=== PATIENT | female | born 1980 | race American Indian/Alaskan Native ===

== ENCOUNTER 2016-06-30 13:02 | Inpatient (IN) | payer BC ==
--- NOTE | 2016-06-30 13:20 | Emergency Department Report ---
Chief Complaint: Adult Asthma Stated Complaint: MIKAYLA - HPI History of Present Illness: Patient presents with progressive asthma attack on going x Sunday (5-6 days). States on daily prednisone 30 mg, and has had 3 breathing tx upstairs at her dept here in [facility] w/o relief. NOTE: Patient is [facility] employee. - Exam Vital Signs: Vital Signs 06/30/16 13:05 Temperature 98.1 F Pulse Rate 107 H Blood Pressure 155/99 O2 Sat by Pulse 100 Oximetry Physical Exam: Lungs: Labored respiration. MSE screening note: Focused history and physical exam performed. Due to findings the following was ordered: ED Disposition for MSE Condition: Stable
[2016-06-30] MEDS ORDERED: DUONEB 0.5 MG-3 MG/3 ML SOLN IH ONE ×2 (13:24→13:25)
[2016-06-30] MEDS ORDERED: MAGNESIUM SULFATE 2GM/50ML 50 ML IV ONE (13:26)
--- NOTE | 2016-06-30 14:26 | XRay Report ---
AP CHEST: HISTORY: Difficulty in breathing AP view of the chest demonstrates a normal mediastinal and cardiac contour with clear lungs and normal bony and soft tissue structures. IMPRESSION: Unremarkable AP chest.
[2016-06-30 14:49] LABS: Basophils % (Auto) 0.3 % (0.0-1.8); Hematocrit 36.7 % (30.3-42.9); Hemoglobin 12.1 gm/dl (10.1-14.3); Mean Corpuscular HGB Conc 33 % (30-34); Mean Corpuscular Hemoglobin 27 pg (28-32); Mean Corpuscular Volume 82 fl (79-97); Platelet Count 424 K/mm3 (140-440); Red Blood Count 4.51 M/mm3 (3.65-5.03); Red Cell Distribution Width 15.4 % (13.2-15.2); White Blood Count 7.1 K/mm3 (4.5-11.0)
--- NOTE | 2016-06-30 14:57 | Emergency Department Report ---
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 She has a history of asthma which I suspect is moderately severe. She is seen her primary care physician or fixed income director's who has placed her on steroids. He is also started Pulmicort. She is ordinarily on home nebs which she has taken 5 mg of albuterol today as well as her Pulmicort neb. Despite this she has continued difficulty in breathing. She was placed she states on an antibiotic taken twice a day which starts with a "Z" this week. She is on 30 mg of prednisone a day currently. She has no history of previous intubation. She does not report a history of diabetes either. She does not complain of chest pain, fever or chills. -: Gradual, week(s) Consistency: constant Improves with: none Worsens with: none Associated Symptoms: denies other symptoms - Related Data Home Medications Medication Instructions Recorded Confirmed Last Taken Montelukast [Singulair] 10 mg PO QPM 08/14/15 08/14/15 08/13/15 Previous Rx's Medication Instructions Recorded Last Taken Type Cimetidine [Tagamet Hb] 2 tab PO BID #12 tablet 08/14/15 Unknown Rx Triamcinolone 0.1% [Kenalog 0.1% 1 applic TP TID #120 gm 08/14/15 Unknown Rx CREAM] hydrOXYzine PAMOATE [Vistaril] 1 tab PO Q6HR PRN #20 capsule 08/14/15 Unknown Rx predniSONE [Deltasone] 3 tab PO QDAY #15 tab 08/14/15 Unknown Rx Allergies Allergy/AdvReac Type Severity Reaction Status Date / Time codeine Allergy Hives Verified 06/30/16 13:11 montelukast sodium Allergy Hives Verified 06/30/16 13:11 [From Singulair] ED Review of Systems ROS: Stated complaint: MIKAYLA Other details as noted in HPI Constitutional: denies: chills, fever Eyes: denies: eye pain, eye discharge, vision change ENT: denies: ear pain, throat pain Respiratory: cough (occasional nonproductive), shortness of breath, wheezing Cardiovascular: denies: chest pain, palpitations Endocrine: no symptoms reported Gastrointestinal: denies: abdominal pain, nausea, diarrhea Genitourinary: denies: urgency, dysuria, discharge Musculoskeletal: denies: back pain, joint swelling, arthralgia Skin: denies: rash, lesions Neurological: denies: headache, weakness, paresthesias Psychiatric: denies: anxiety, depression Hematological/Lymphatic: denies: easy bleeding, easy bruising ED Past Medical Hx - Past Medical History Hx Hypertension: Yes Hx Diabetes: Yes Hx Asthma: Yes - Surgical History Additional Surgical History: bladder surgery, Right knee surgery - Social History Smoking Status: Never Smoker Substance Use Type: Alcohol - Medications Home Medications: Home Medications Medication Instructions Recorded Confirmed Last Taken Type Cimetidine [Tagamet Hb] 2 tab PO BID #12 tablet 08/14/15 Unknown Rx Montelukast [Singulair] 10 mg PO QPM 08/14/15 08/14/15 08/13/15 History Triamcinolone 0.1% [Kenalog 0.1% 1 applic TP TID #120 gm 08/14/15 Unknown Rx CREAM] hydrOXYzine PAMOATE [Vistaril] 1 tab PO Q6HR PRN #20 capsule 08/14/15 Unknown Rx predniSONE [Deltasone] 3 tab PO QDAY #15 tab 08/14/15 Unknown Rx ED Physical Exam - General Limitations: No Limitations General appearance: alert, in no apparent distress - Head Head exam: Present: atraumatic, normocephalic - Eye Eye exam: Present: normal appearance, PERRL, EOMI. Absent: scleral icterus - ENT ENT exam: Present: normal exam, mucous membranes moist - Neck Neck exam: Present: normal inspection - Respiratory Respiratory exam: Present: other (patient noted to be a bit tachypnea with a very slight end expiratory wheeze.). Absent: respiratory distress - Cardiovascular Cardiovascular Exam: Present: regular rate, normal rhythm. Absent: systolic murmur, diastolic murmur, rubs, gallop - GI/Abdominal GI/Abdominal exam: Present: soft, normal bowel sounds. Absent: distended, tenderness, guarding, rebound, rigid, organomegaly, mass, bruit, pulsatile mass , hernia - Extremities Exam Extremities exam: Present: normal inspection. Absent: pedal edema, joint swelling, calf tenderness - Back Exam Back exam: Present: normal inspection. Absent: CVA tenderness (R), CVA tenderness (L), muscle spasm, paraspinal tenderness, vertebral tenderness - Neurological Exam Neurological exam: Present: alert, oriented X3, CN II-XII intact. Absent: motor sensory deficit - Psychiatric Psychiatric exam: Present: normal affect, normal mood - Skin Skin exam: Present: warm, dry, intact, normal color. Absent: rash ED Course Vital Signs 06/30/16 06/30/16 06/30/16 13:05 13:28 13:59 Temperature 98.1 F Pulse Rate 107 H Pulse Rate [ 98 H 102 H Anterior Bilateral Throughout] Respiratory 24 20 Rate [Anterior Bilateral Throughout] Blood Pressure 155/99 O2 Sat by Pulse 100 Oximetry - Reevaluation(s) Reevaluation #1: The patient's respiratory rate appeared to be a bit disproportionate to the degree of her wheezing. She was found to have an increased anion gap metabolic acidosis. She has a sugar of 199. This is probably steroid induced. I have ordered some potassium as her total body potassium is undoubtably depleted with a serum potassium of 3.3. I've expanded her workup to investigate other possible causes of metabolic acidosis increased anion gap. Patient's chest x-ray was essentially negative. I have discussed the case with the hospitalist. They wanted to defer empiric antibiotics at this time. I have ordered a repeat BMP after a liter of normal saline and potassium is given area and patient will be admitted for further care and observation overnight. I suspect the Solu-Medrol that she has now gotten May the possibly worsen the process. In any case she will be admitted for further evaluation. 06/30/16 16:17 ED Medical Decision Making - Lab Data Result diagrams: 06/30/16 14:36 06/30/16 14:36 Laboratory Results - last 24 hr 06/30/16 14:36 WBC 7.1 RBC 4.51 Hgb 12.1 Hct 36.7 MCV 82 MCH 27 L MCHC 33 RDW 15.4 H Plt Count 424 Lymph % (Auto) 11.9 L Franklin % (Auto) 5.7 Eos % (Auto) 0.0 Baso % (Auto) 0.3 Lymph # 0.8 L Franklin # 0.4 Eos # 0.0 Baso # 0.0 Seg Neutrophils % 82.1 H Seg Neutrophils # 5.8 Laboratory Results - last 24 hr 06/30/16 14:36 WBC 7.1 RBC 4.51 Hgb 12.1 Hct 36.7 MCV 82 MCH 27 L MCHC 33 RDW 15.4 H Plt Count 424 Lymph % (Auto) 11.9 L Franklin % (Auto) 5.7 Eos % (Auto) 0.0 Baso % (Auto) 0.3 Lymph # 0.8 L Franklin # 0.4 Eos # 0.0 Baso # 0.0 Seg Neutrophils % 82.1 H Seg Neutrophils # 5.8 Laboratory Results - last 24 hr 06/30/16 06/30/16 14:36 14:36 WBC 7.1 RBC 4.51 Hgb 12.1 Hct 36.7 MCV 82 MCH 27 L MCHC 33 RDW 15.4 H Plt Count 424 Lymph % (Auto) 11.9 L Franklin % (Auto) 5.7 Eos % (Auto) 0.0 Baso % (Auto) 0.3 Lymph # 0.8 L Franklin # 0.4 Eos # 0.0 Baso # 0.0 Seg Neutrophils % 82.1 H Seg Neutrophils # 5.8 Sodium 137 Potassium 3.3 L Chloride 94.7 L Carbon Dioxide 18 L Anion Gap 28 BUN 9 Creatinine 0.8 Estimated GFR > 60 BUN/Creatinine Ratio 11.25 Glucose 199 H Calcium 9.5 - EKG Data -: EKG Interpreted by Me EKG shows normal: sinus rhythm, intervals, QRS complexes, ST-T waves Rate: normal - EKG Data Interpretation: nonspecific ST-T wave tucker L axis deviation 06/30/16 16:20 - Radiology Data interpreted by me: Chest x-ray shows no acute process Critical care attestation.: If time is entered above; I have spent that time in minutes in the direct care of this critically ill patient, excluding procedure time. ED Disposition Clinical Impression: Metabolic acidosis, Increased anion gap metabolic acidosis, Hyperglycemia, Hyponatremia, Exacerbation of asthma Disposition: OP ADMITTED IP TO THIS HOSP Is pt being admited?: Yes Does the pt Need Aspirin: No Condition: Stable Referrals: PRIMARY CARE, [Primary Care Provider] - 3-5 Days Time of Disposition: 16:27
[2016-06-30 15:32] LABS: BUN/Creatinine Ratio 11.25; Blood Urea Nitrogen 9 mg/dL (7-17); Calcium 9.5 mg/dL (8.4-10.2); Carbon Dioxide 18 mmol/L (22-30); Chloride 94.7 mmol/L (98-107); Glucose 199 mg/dL (65-100); Potassium 3.3 mmol/L (3.6-5.0); Sodium 137 mmol/L (137-145)
[2016-06-30 15:39] LABS: Anion Gap 28 mmol/L
[2016-06-30] MEDS ORDERED: K-DUR PO ONE (16:11)
[2016-06-30] MEDS ORDERED: NACL 0.9% 1000 ML 1,000 ML IV ONE (16:11)
--- NOTE | 2016-06-30 16:42 | Admit Criteria Form ---
Admission Criteria Documentation: ASTHMA Clinical Indications for Admission to Inpatient Care (Place 'X' for any and all applicable criteria): Admission is indicated for ANY ONE of the following (1)(2)(3)(4)(5): [ ]I. Absent or markedly diminished breath sounds (silent chest) [ ]II. Oxygen saturation < 92% [ ]III. PaCO2 = / > 42 mm Hg (5.6 kPa) [ ]IV. Peak expiratory flow rate < 40% of predicted or personal best after treatment. [ ]V. Peak expiratory flow rate < 33% of predicted or personal before after treatment [ ]. Change in mental status [ ]VII. Ventilatory support required [ ]VIII. PaO2 < 60 mm Hg (8.0 kPa) [ ]IX. Cyanosis [ ]X. Cardiac dysrhythmia (e.g., bradycardia) [ ]XI. Hemodynamic instability [ ]XII. Radiographic evidence of complication requiring inpatient treatment (e.g., pneumonia, pneumothorax) [X]XIII. Inpatient admission required rather than observation care (also use Asthma: Observation Care guideline as appropriate) because of ANY ONE of the following: [X]a) Respiratory finding that is severe or persistent (eg, dyspnea, tachypnea, accessory muscle use) [ ]b) Airflow measurements less than 60% of predicted or personal best that persist (e.g., over 24 hours) or worsen despite treatments [X]c) Supplemental oxygen or respiratory treatments for over 24 hours that are performable only in acute inpatient setting [ ]d) Other condition, treatment or monitoring requiring inpatient admission. Extended stay beyond goal length of stay may be needed for (26)(27)(28): [ ]a) Severe respiratory failure (23) (29) (30) [ ]b) Secondary causes and complications (25) [ ]c) Status asthmaticus [ ]d) Chronic obstructive asthma [ ]e) Older patients (29) [ ]f) Slow resolution [ ]g) Clinically significant exacerbation of comorbidities (eg, nicole. heart failure, atrial fibrillation) The original [facility] content created by [employer] has been revised. The portions of the content which have been revised are identified through the use of italic text or in bold, and [facility] has neither reviewed nor approved the modified material. All other unmodified content is copyright [facility] Please see references footnoted in the original [facility] edition 2016 Admission Criteria Met: Yes
[2016-06-30] MEDS ORDERED: BROVANA NEBU IH ONE (17:23)
--- NOTE | 2016-06-30 17:25 | History and Physical Report ---
History of Present Illness Date of examination: 06/30/16 Date of admission: 06/30/16 16:15 Chief complaint: shortness of breath and wheezing for 6 days History of present illness: Miss Spann is a 35-year-old -[place] female who presented to the emergency room with shortness of breath and wheezing which has been ongoing for the last 6 days. She reported that she was at work on Sunday and started to have difficulty breathing and she had to go home. She was started on steroids and antibiotics. She was also been using her nebulization treatment at home. She reported that her breathing has been so bad that she has been using her father's CPAP machine at night's. She was seen in the emergency room and given IV steroids, IV magnesium sulfate and nebulization treatments. At the time of evaluation she reported that she felt much better and her shortness of breath had improved. She had no chest pain or chest tightness. Dr. Ruvalcaba is her global lead. Past History Past Medical History: diabetes, hypertension, other (Asthma asthma-never been intubated. She reports that she's not had an asthma attack for a while and that usually she is relatively well controlled) Past Surgical History: Other (surgery on the knee) Social history: full code. denies: smoking, alcohol abuse, prescription drug abuse, IV drug use Family history: hypertension, other (asthma-brother from asthma) Medications and Allergies Allergies Allergy/AdvReac Type Severity Reaction Status Date / Time codeine Allergy Hives Verified 06/30/16 13:11 montelukast sodium Allergy Hives Verified 06/30/16 13:11 [From Singulair] Home Medications Medication Instructions Recorded Confirmed Last Taken Type Cimetidine [Tagamet Hb] 2 tab PO BID #12 tablet 08/14/15 Unknown Rx Montelukast [Singulair] 10 mg PO QPM 08/14/15 08/14/15 08/13/15 History Triamcinolone 0.1% [Kenalog 0.1% 1 applic TP TID #120 gm 08/14/15 Unknown Rx CREAM] hydrOXYzine PAMOATE [Vistaril] 1 tab PO Q6HR PRN #20 capsule 08/14/15 Unknown Rx predniSONE [Deltasone] 3 tab PO QDAY #15 tab 08/14/15 Unknown Rx Review of Systems All systems: negative Constitutional: no weight loss, no weight gain, no fever, no anorexia, no fatigue, no weakness Ears, nose, mouth and throat: no ear pain, no ear discharge, no tinnitis Breasts: normal Cardiovascular: no chest pain, no orthopnea, no palpitations, no rapid/ irregular heart beat Respiratory: cough, no cough with sputum, no excessive sputum, no hemoptysis Gastrointestinal: no abdominal pain, no nausea, no vomiting, no diarrhea Genitourinary Female: no dyspareunia, no dysmenorrhea, no pelvic pain, no flank pain, no menorrhagia Musculoskeletal: no shooting arm pain, no arm numbness/tingling, no low back pain Integumentary: no rash, no pruritis, no redness, no sores Neurological: no head injury, no transient paralysis, no paralysis, no weakness , no parathesias Psychiatric: no anxiety, no memory loss, no change in sleep habits, no sleep disturbances Endocrine: no cold intolerance, no heat intolerance, no polyphagia, no excessive thirst Hematologic/Lymphatic: no easy bruising, no easy bleeding Allergic/Immunologic: no urticaria, no allergic rhinitis, no wheezing Exam - Constitutional Vitals: Temp Pulse Resp BP Pulse Ox 98.1 F 89 24 116/72 100 06/30/16 13:05 06/30/16 16:47 06/30/16 16:47 06/30/16 16:47 06/30/16 16:47 General appearance: Present: no acute distress, obese (morbid) - EENT Eyes: Present: PERRL, EOM intact. Absent: scleral icterus, conjunctival injection ENT: hearing intact, clear oral mucosa, no oropharyngeal erythema, no poor dentition - Neck Neck: Present: supple, normal ROM. Absent: enlarged thyroid, masses or JVD - Respiratory Respiratory effort: normal Respiratory: bilateral: diminished, negative: rales, rhonchi, wheezing - Cardiovascular Rhythm: regular Heart Sounds: Present: S1 & S2. Absent: gallop - Extremities Extremities: no ischemia, pulses intact, pulses symmetrical, No edema, normal temperature, normal color Peripheral Pulses: within normal limits - Abdominal General gastrointestinal: Present: soft, non-tender, non-distended, normal bowel sounds Female genitourinary: Present: deferred - Rectal Rectal Exam: deferred - Integumentary Integumentary: Present: clear - Musculoskeletal Musculoskeletal: strength equal bilaterally - Psychiatric Psychiatric: appropriate mood/affect, intact judgment & insight, cooperative - Neurologic Neurologic: CNII-XII intact, moves all extremities Results - Labs CBC & Chem 7: 06/30/16 14:36 06/30/16 14:36 - Imaging and Cardiology EKG: image reviewed (LVH, heart rate 102) Chest x-ray: report reviewed ( no acute abnormality) Assessment and Plan 1. Acute Asthma exacerbation-admit as an inpatient as more than 2 midnights are required for treatment; and tinea with nebulizations with albuterol and Atrovent. We'll also start Brovana and Pulmicort. IV Solu-Medrol. We'll consult pulmonary. 2. Diabetes type 2-consistent carb diet, sliding scale insulin for now. We'll restart her home meds once they have been obtained. 3. Benign hypertension-controlled, continue to monitor. 4. Morbid Obesity-life style modification which 5. Low bicarbonate with elevated anion gap-we'll repeat lab. Patient doesn't appear to be in DKA clinically. 6. Hypokalemia-was replaced with po potassium supplementation; check Magnesium level; repeat level in the a.m 7. DVT prophylaxis-Lovenox
[2016-06-30 19:17] LABS: Partial Thromboplastin Time 26.7 Sec. (24.2-36.6)
[2016-06-30] MEDS ORDERED: NACL 0.45% 1000 ML 1,000 ML IV SCH (19:41)
[2016-06-30] MEDS ORDERED: ATROVENT IH PRN (19:41)
[2016-06-30] MEDS ORDERED: REGLAN IV PRN (19:41)
[2016-06-30] MEDS ORDERED: VISTARIL PO PRN (19:41)
[2016-06-30] MEDS ORDERED: TYLENOL PO PRN (19:41)
[2016-06-30] MEDS ORDERED: DULCOLAX PR PRN (19:41)
[2016-06-30] MEDS ORDERED: ZOFRAN IV PRN (19:41)
[2016-06-30] MEDS ORDERED: PROVENTIL IH PRN (19:41)
[2016-06-30] MEDS ORDERED: BROVANA NEBU IH SCH (20:00)
[2016-06-30] MEDS ORDERED: PULMICORT IH SCH (20:00)
[2016-06-30 20:05] LABS: Creatine Kinase 71 units/L (30-135); Magnesium 2.1 mg/dL (1.7-2.3)
[2016-06-30 20:06] LABS: Alanine Aminotransferase 14 units/L (7-56); Albumin 4.3 g/dL (3.9-5); Albumin/Globulin Ratio 1.3 %; Alkaline Phosphatase 68 units/L (35-129); Bilirubin,Total 0.3 mg/dL (0.1-1.2); Total Protein 7.7 g/dL (6.3-8.2)
[2016-06-30 20:27] LABS: Bilirubin,Direct < 0.2 mg/dL (0-0.2); Bilirubin,Indirect 0.1 mg/dL; Creatine Kinase MB < 1.0 ng/mL (0.0-4.0)
[2016-06-30 20:44] LABS: BUN/Creatinine Ratio 12.85; Blood Urea Nitrogen 9 mg/dL (7-17); Carbon Dioxide 22 mmol/L (22-30); Chloride 94.9 mmol/L (98-107); Glucose 266 mg/dL (65-100); Sodium 134 mmol/L (137-145)
[2016-06-30 21:03] LABS: Anion Gap 21 mmol/L
[2016-06-30] MEDS ORDERED: CIMETIDINE PO SCH (22:00)
[2016-06-30] MEDS ORDERED: PEPCID PO SCH (22:00)
[2016-06-30] MEDS: NOVOLOG SUB-Q SCH (23:53)
[2016-06-30] MEDS: KENALOG TP SCH (23:55)
[2016-07-01] MEDS: ATROVENT IH SCH ×2 (01:12→13:46)
[2016-07-01 05:12] LABS: Anion Gap 20 mmol/L; BUN/Creatinine Ratio 18.33; Blood Urea Nitrogen 11 mg/dL (7-17); Calcium 8.9 mg/dL (8.4-10.2); Carbon Dioxide 21 mmol/L (22-30); Chloride 95.8 mmol/L (98-107); Glucose 226 mg/dL (65-100); Sodium 133 mmol/L (137-145)
[2016-07-01] MEDS: NOVOLOG SUB-Q SCH ×2 (08:23→12:09)
[2016-07-01] MEDS: KENALOG TP SCH (08:26)
[2016-07-01] MEDS ORDERED: LOVENOX SUB-Q SCH (10:00)
--- NOTE | 2016-07-01 11:04 | Discharge Summary ---
Providers - Providers Date of Admission: 06/30/16 16:15 Date of discharge: 07/01/16 Attending physician: CARLOS AN 06/30/16 17:23 Consult to Physician [CONS] Routine Consulting Provider: ABDULAZIZ BRUSH Reason For Exam: BA exacerbation Place consult to:: dr. gonzalez Notified:: answering service Phone number called:: Was contact made?: Yes If yes, spoke with:: [place] Time called:: 17:33 Primary care physician: FAMILY PHYSICIAN Hospitalization Reason for admission: worsening shortness of breath Condition: Stable Pertinent studies: Chest x-ray; no acute abnormality noted Hospital course: Brief history and hospital course; 35-year-old -[place] female patient was admitted through emergency room With worsening shortness of breath and wheezing of 6 days duration, patient was initially evaluated and noted to be in acute exacerbation of bronchial asthma, admitted and managed with oxygen and nebulizers IV steroids IV antibiotics and inhalation steroids Patient has mild hypokalemia and hyponatremia which was corrected Also lactic acidosis and metabolic acidosis, this significantly improved Blood pressures blood sugars closely monitored medications were optimized Patient's symptoms improved today she is comfortable in bed Alert awake oriented 3 not in acute distress, vital signs reviewed stable [id number] evaluation and physical examination done by me prior to discharge did not show any changes as detailed below Patient is also morbidly obese, counseling done advised diet modification and exercise as tolerated and weight reduction, outpatient sleep studies to rule out obstructive sleep apnea Patient verbalized understanding Disposition: DISCHARGED TO HOME OR SELFCARE Time spent for discharge: 31 min - Discharge Diagnoses (1) Exacerbation of asthma Status: Acute (2) Hyperglycemia Status: Acute (3) Hyponatremia Status: Acute (4) Metabolic acidosis Status: Acute (5) Hypokalemia Status: Acute (6) Lactic acidosis Status: Acute (7) Hypertension Status: Chronic Qualifiers: Hypertension type: essential hypertension Qualified Code(s): I10 - Essential (primary) hypertension (8) Morbid obesity with BMI of 40.0-44.9, adult Status: Chronic Core Measure Documentation - Palliative Care Palliative Care/ Comfort Measures: Not Applicable - Core Measures Any of the following diagnoses?: none Exam - Constitutional Vitals: Temp Pulse Resp BP Pulse Ox 98.1 F 77 20 156/83 98 07/01/16 08:00 07/01/16 08:00 07/01/16 08:00 07/01/16 08:00 07/01/16 08:00 General appearance: Present: no acute distress, well-nourished - EENT Eyes: Present: PERRL, EOM intact - Neck Neck: Present: supple, normal ROM - Respiratory Respiratory effort: normal Respiratory: bilateral: diminished, negative: rales, rhonchi, wheezing - Cardiovascular Rhythm: regular Heart Sounds: Present: S1 & S2 - Extremities Extremities: no ischemia, pulses intact, pulses symmetrical Peripheral Pulses: within normal limits - Abdominal General gastrointestinal: Present: soft, non-tender, non-distended, normal bowel sounds - Integumentary Integumentary: Present: clear, warm - Musculoskeletal Musculoskeletal: strength equal bilaterally, generalized weakness - Psychiatric Psychiatric: appropriate mood/affect, cooperative - Neurologic Neurologic: CNII-XII intact, moves all extremities Plan Activity: no restrictions Diet: diabetic Follow up with: PRIMARY CARE, [Primary Care Provider] - 3-5 Days ABDULAZIZ BRUSH MD [Staff Physician] - 7 Days Prescriptions: Azithromycin [Zithromax Z-STEFAN] 0 mg PO DAILY #1 tab Fluconazole [Diflucan TAB] 150 mg PO ONCE #1 tablet Prednisone [predniSONE 10 mg (6-Day Pack, 21 Tabs)] 10 mg PO .TAPER #1 tab.ds.pk
[2016-07-01 11:51] LABS: Urine Drugs of Abuse Note Disclamer
[2016-07-01 11:54] VITALS: BP 160/98
[2016-07-01] MEDS ORDERED: PNEUMOVAX 23 IM ONE (12:00)
[2016-07-01 12:03] LABS: Bilirubin,Urine NEG (Negative); Blood,Urine NEG (Negative); Ketones,Urine TR mg/dL (Negative); Leukocyte Esterase,Urine NEG (Negative); Mucus,Urine FEW /HPF; Nitrite,Urine NEG (Negative); Protein,Urine <15 mg/dL mg/dL (Negative); Urobilinogen,Urine < 2.0 mg/dL (<2.0)
== END 2016-07-01 14:45 | disposition home or self-care (01) | DRG 202 ==
LOC: ED 13:02 → 3A 16:15
PROVIDERS: ADMIT Hospitalist; ATTEND Hospitalist
DX: J45.901 Unspecified asthma with (acute) exacerbation (principal); Z68.41 Body mass index [BMI] 40.0-44.9, adult; E11.9 Type 2 diabetes mellitus without complications; E66.01 Morbid (severe) obesity due to excess calories; E87.6 Hypokalemia; I10 Essential (primary) hypertension; Z88.8 Allergy status to other drugs, medicaments and biological substances; Z79.899 Other long term (current) drug therapy; Z98.890 Other specified postprocedural states; Z82.49 Family history of ischemic heart disease and other diseases of the circulatory system; Z82.5 Family history of asthma and other chronic lower respiratory diseases
CPT/HCPCS: 36415; 71010; 80048; 80074; 80307; 80320; 81001; 81025; 82010; 82140; 82550; 82553; 82805; 82962; 83735; 83880; 84484; 85025; 85379; 85610; 85730; 87040; 87086; 90732; 93005; 93010; 94640; 96365; 96372; G0480; J1650; J1815; J2930; J3475; J7030

== ENCOUNTER 2017-10-03 09:13 | Outpatient (CLI) | payer BC | END 2017-10-03 09:14 | disposition home or self-care (01) | LOC: ECHO 09:13 | PROVIDERS: ATTEND Family Medicine | DX: I51.7 Cardiomegaly (principal) | CPT/HCPCS: 93306 ==

== ENCOUNTER 2019-05-26 21:03 | Emergency (ER) | payer BC ==
[2019-05-26] MEDS ORDERED: ALBUTEROL 2.5 MG/3 ML NEBU IH ONE (21:08)
[2019-05-26] MEDS ORDERED: IPRATROPIUM 0.02% NEBU 2.5 ML IH ONE (21:08)
--- NOTE | 2019-05-26 21:13 | Event Note ---
ED Screening Note Date of service: 05/26/19 Time: 21:12 ED Screening Note: 38 y o f with hx of asthma presens with sob This initial assessment/diagnostic orders/clinical plan/treatment(s) is/are subject to change based on patients health status, clinical progression and re- assessment by fellow clinical providers in the ED. Further treatment and workup at subsequent clinical providers discretion. Patient/guardian urged not to elope from the ED as their condition may be serious if not clinically assessed and managed. Initial orders include: Resp protocol initiated duoneb treatment acc eval
[2019-05-26] MEDS ORDERED: dexAMETHasone 20 MG/5 ML VIAL IV ONE (21:14)
[2019-05-26] MEDS ORDERED: MAGNESIUM SULFATE 2 GM/50 ML BAG IV ONE (21:14)
[2019-05-26 22:34] VITALS: BP 143/83
[2019-05-26] MEDS ORDERED: SODIUM CHLORIDE 0.9% 1000 ML 1,000 ML IV ONE (22:45)
[2019-05-26] MEDS ORDERED: SODIUM CHLORIDE 0.9% 1000 ML 1,000 ML ONE (22:47)
--- NOTE | 2019-05-26 23:02 | Emergency Department Report ---
ED Shortness of Breath HPI - General Chief Complaint: Dyspnea/Respdistress Stated Complaint: DIFF BREATHING Time Seen by Provider: 05/26/19 22:40 Source: patient Mode of arrival: Ambulatory Limitations: No Limitations - History of Present Illness Initial Comments: 38-year-old -I[place]ian female presents to the emergency room complaining of shortness breath and wheezing 2 days. Patient says she's had a cough but no fever. She does admit to having a past medical history of asthma. Patient states that she's been given her some nebulizer treatments for the last 2 days with no improvement. Patient reports she came to the emergency room because she knew she needed steroids. MD Complaint: shortness of breath Onset/Timin -: days(s) Pain Scale: 0 Known History Of: asthma - Related Data Home Medications Medication Instructions Recorded Confirmed Last Taken Budesoni/Formotero 160-4.5(Nf) 2 puff IH BID 06/30/16 06/30/16 Unknown [Symbicort 160-4.5 (Nf)] Canagliflozin [Invokana] 100 mg PO DAILY 06/30/16 06/30/16 Unknown Dulaglutide [Trulicity] 1.5 mg SQ QWEEK 06/30/16 06/30/16 06/28/16 1.5 MG Esomeprazole Magnesium [NexIUM] 40 mg PO QDAY 06/30/16 06/30/16 Unknown Lisinopril/Hydrochlorothiazide 1 tab PO QDAY 06/30/16 06/30/16 Unknown [Zestoretic 20-25 mg] dilTIAZem XT (NF) [Taztia Xt (Nf)] 240 mg PO QDAY 06/30/16 06/30/16 Unknown Previous Rx's Medication Instructions Recorded Last Taken Type Azithromycin [Zithromax Z-STEFAN] 0 mg PO DAILY #1 tab 07/01/16 Unknown Rx Fluconazole [Diflucan TAB] 150 mg PO ONCE #1 tablet 07/01/16 Unknown Rx Prednisone [predniSONE 10 mg 10 mg PO .TAPER #1 tab.ds.pk 07/01/16 Unknown Rx (6-Day Pack, 21 Tabs)] Benzonatate [Tessalon Perles] 100 mg PO Q8HR #15 capsule 05/26/19 Unknown Rx Fluconazole [Diflucan TAB] 200 mg PO QDAY 2 Days #2 tablet 05/26/19 Unknown Rx predniSONE [Deltasone] 20 mg PO QDAY #10 tablet 05/26/19 Unknown Rx Allergies Allergy/AdvReac Type Severity Reaction Status Date / Time codeine Allergy Hives Verified 06/30/16 13:11 montelukast sodium Allergy Hives Verified 06/30/16 13:11 [From [facility]] ED Review of Systems ROS: Stated complaint: DIFF BREATHING Other details as noted in HPI Comment: All other systems reviewed and negative Respiratory: cough, shortness of breath, wheezing ED Past Medical Hx - Past Medical History Hx Hypertension: Yes (2007) Hx Diabetes: Yes Hx Asthma: Yes Hx COPD: No - Surgical History Additional Surgical History: bladder surgery, Right knee surgery - Social History Smoking Status: Never Smoker Substance Use Type: None - Medications Home Medications: Home Medications Medication Instructions Recorded Confirmed Last Taken Type Budesoni/Formotero 160-4.5(Nf) 2 puff IH BID 06/30/16 06/30/16 Unknown History [Symbicort 160-4.5 (Nf)] Canagliflozin [Invokana] 100 mg PO DAILY 06/30/16 06/30/16 Unknown History Dulaglutide [Trulicity] 1.5 mg SQ QWEEK 06/30/16 06/30/16 06/28/16 History 1.5 MG Esomeprazole Magnesium [NexIUM] 40 mg PO QDAY 06/30/16 06/30/16 Unknown History Lisinopril/Hydrochlorothiazide 1 tab PO QDAY 06/30/16 06/30/16 Unknown History [Zestoretic 20-25 mg] dilTIAZem XT (NF) [Taztia Xt (Nf)] 240 mg PO QDAY 06/30/16 06/30/16 Unknown History Azithromycin [Zithromax Z-STEFAN] 0 mg PO DAILY #1 tab 07/01/16 Unknown Rx Fluconazole [Diflucan TAB] 150 mg PO ONCE #1 tablet 07/01/16 Unknown Rx Prednisone [predniSONE 10 mg 10 mg PO .TAPER #1 tab.ds.pk 07/01/16 Unknown Rx (6-Day Pack, 21 Tabs)] Benzonatate [Tessalon Perles] 100 mg PO Q8HR #15 capsule 05/26/19 Unknown Rx Fluconazole [Diflucan TAB] 200 mg PO QDAY 2 Days #2 tablet 05/26/19 Unknown Rx predniSONE [Deltasone] 20 mg PO QDAY #10 tablet 05/26/19 Unknown Rx ED Physical Exam - General Limitations: No Limitations General appearance: alert, in no apparent distress - Head Head exam: Present: atraumatic, normocephalic - Eye Eye exam: Present: normal appearance - ENT ENT exam: Present: mucous membranes moist - Respiratory Respiratory exam: Present: wheezes, rhonchi, accessory muscle use - Cardiovascular Cardiovascular Exam: Present: tachycardia - GI/Abdominal GI/Abdominal exam: Present: soft, normal bowel sounds - Neurological Exam Neurological exam: Present: alert, oriented X3, normal gait - Psychiatric Psychiatric exam: Present: normal affect, normal mood - Skin Skin exam: Present: warm, dry, intact, normal color. Absent: rash ED Course Vital Signs 05/26/19 05/26/19 05/26/19 21:06 22:25 22:30 Temperature 98.7 F 98.4 F Pulse Rate 113 H 116 H Pulse Rate [ 119 H Bilateral Throughout] Respiratory 20 22 Rate Respiratory 125 H Rate [Bilateral Throughout] Blood Pressure 136/105 Blood Pressure 143/83 [Right] O2 Sat by Pulse 99 100 Oximetry ED Medical Decision Making - Medical Decision Making 38-year-old -Ivorian female presents to the emergency room complaining of shortness breath and wheezing 2 days. Patient says she's had a cough but no fever. She does admit to having a past medical history of asthma. Patient states that she's been given her some nebulizer treatments for the last 2 days with no improvement. Patient reports she came to the emergency room because she knew she needed steroids. Patient was given albuterol and Atrovent neb treatments. Magnesium 2 mg IV, normal saline 1 L IV and dexamethasone 10 mg IV. Patient states that she feels much better after treatment. Patient is requesting Diflucan for yeast after taking prednisone. She'll be discharged home with prednisone 20 mg daily for the next 5 days and benzonatate 100 mg by mouth 3 times a day when necessary. Patient is continua for neb treatments at home. Critical care attestation.: If time is entered above; I have spent that time in minutes in the direct care of this critically ill patient, excluding procedure time. ED Disposition Clinical Impression: Asthma, Exacerbation of asthma Disposition: TO HOME OR SELFCARE Is pt being admited?: No Does the pt Need Aspirin: No Condition: Stable Instructions: Asthma (ED) Additional Instructions: Please take medications as prescribed. Follow up with her primary care provider if his symptoms persist or gets worse. Prescriptions: predniSONE [Deltasone] 20 mg PO QDAY #10 tablet Fluconazole [Diflucan TAB] 200 mg PO QDAY 2 Days #2 tablet Benzonatate [Tessalon Perles] 100 mg PO Q8HR #15 capsule Referrals: PRIMARY CARE, [Primary Care Provider] - 3-5 Days Forms: Work/School Release Form(ED)
[2019-05-27] MEDS ORDERED: IPRATROPIUM/ALBUTEROL SULFATE 3 ML AMPUL.NEB IH SCH (08:00)
== END 2019-05-27 00:13 | disposition home or self-care (01) ==
LOC: ED 21:03
DX: J45.901 Unspecified asthma with (acute) exacerbation (principal); I10 Essential (primary) hypertension; E11.9 Type 2 diabetes mellitus without complications; Z98.890 Other specified postprocedural states; Z79.899 Other long term (current) drug therapy; Z88.5 Allergy status to narcotic agent; Z88.8 Allergy status to other drugs, medicaments and biological substances
CPT/HCPCS: 94644; 96365; 96375; 99283; J1100; J3475; J7030

== ENCOUNTER 2020-03-11 12:00 | Outpatient (CLI) | payer BC ==
--- NOTE | 2020-03-11 15:36 | Cat Scan Report ---
CT abdomen pelvis wo con INDICATION: IRINARY TRACT INFECTION. TECHNIQUE: All CT scans at this location are performed using CT dose reduction for ALARA by means of automated e xposure control. COMPARISON: None available. FINDINGS: Lung bases are clear of acute disease. Gallbladder is almost completely collapsed. Liver, spleen, arnold creas, kidneys and adrenals are negative on this noncontrast exam. Abdominal aorta is normal in size. No adenopathy. Pelvis Uterus, urinary bladder and distal ureters are unremarkable. Tiny calcification near the right distal ureter is thought to represent a phlebolith. Normal appendix. No free fluid or inflammation. IMPRESSION: 1. Negative study. No significant urinary tract abnormalities on this noncontrast exam. Signer Name: Tomi Oleary MD Signed: 03/11/2020 3:31 PM Workstation Name: [email or web address]
== END 2020-03-11 12:01 | disposition home or self-care (01) ==
LOC: CT 12:00
PROVIDERS: ATTEND Urology
DX: N85.8 Other specified noninflammatory disorders of uterus (principal); K82.8 Other specified diseases of gallbladder
CPT/HCPCS: 74176

== ENCOUNTER 2020-03-17 06:13 | Day surgery (SDC) | payer BC ==
[2020-03-15 08:33] LABS: Hematocrit 32.8 % (30.3-42.9); Hemoglobin 11.2 gm/dl (10.1-14.3); Mean Corpuscular HGB Conc 34 % (30-34); Mean Corpuscular Volume 80 fl (79-97); Platelet Count 341 K/mm3 (140-440); Red Blood Count 4.12 M/mm3 (3.65-5.03); Red Cell Distribution Width 16.2 % (13.2-15.2)
[2020-03-15 08:46] LABS: Alanine Aminotransferase 6 units/L (7-56); Albumin 3.7 g/dL (3.9-5); Blood Urea Nitrogen 11 mg/dL (7-17); Calcium 9.5 mg/dL (8.4-10.2); Hemolysis Index 10
[2020-03-15 08:49] LABS: BUN/Creatinine Ratio 16
[~2020-03-17 06:13] MED LIST: BACTERIOSTATIC SODIUM CHLORIDE 0.9% 30 ML VIAL INFILTRATI ONE; LACTATED RINGERS 1,000 ML ONE; ceFAZolin/STERILE WATER 2 GM/20 ML SYRINGE IV NR
[2020-03-17] MEDS ORDERED: LACTATED RINGERS 1,000 ML IV SCH (06:25)
[2020-03-17] MEDS ORDERED: MIDAZOLAM 2 MG/2 ML INJ IV NR (07:09)
--- NOTE | 2020-03-17 07:28 | Anesthesia Day of Surgery ---
Anesthesia Day of Surgery - Day of Surgery Patient Examined: Yes Patient H&P Reviewed: Yes Patient is NPO: Yes
--- NOTE | 2020-03-17 07:29 | Anesthesia Consultation ---
Anesthesia Consult and Med Hx Date of service: 03/17/20 - Airway Anesthetic Teeth Evaluation: Good ROM Head & Neck: Adequate Mental/Hyoid Distance: Adequate Mallampati Class: Class I Intubation Access Assessment: Good - Pre-Operative Health Status ASA Pre-Surgery Classification: ASA3 Proposed Anesthetic Plan: General - Pulmonary Hx Smoking: No Hx Asthma: Yes (DAILY AND PRN INHALERS. Last attack 130641. +2FS) COPD: No Hx Pneumonia: Yes (2001) Hx Sleep Apnea: No (JUANCHO PRE SCREEN LOW RISK.) - Cardiovascular System Hx Hypertension: Yes (2007) Hx Heart Attack/AMI: No Hx Pacemaker: No Hx Internal Defibrillator: No Hx Heart Murmur: Yes - Central Nervous System Hx Neuromuscular Disorder: Yes (Migraines. RA) Hx Seizures: No Hx Psychiatric Problems: No - Gastrointestinal Hx Gastroesophageal Reflux Disease: Yes - Endocrine Hx End Stage Renal Disease: No Hx Liver Disease: No Hx Non-Insulin Dependent Diabetes: Yes - Hematic Hx Anemia: Yes Hx Sickle Cell Disease: No - Other Systems Hx Alcohol Use: No Hx Substance Use: No Hx Cancer: No Hx Obesity: Yes
[2020-03-17] MEDS ORDERED: dexAMETHasone 20 MG/5 ML VIAL ONE (07:32)
[2020-03-17] MEDS ORDERED: ONDANSETRON 4 MG/2 ML INJ ONE (07:32)
[2020-03-17] MEDS ORDERED: LIDOCAINE MPF (2%) 20 MG/1 ML VIAL 5 ML ONE (07:32)
[2020-03-17] MEDS ORDERED: fentaNYL 100 MCG/2 ML INJ ONE (07:32)
[2020-03-17] MEDS ORDERED: propofoL 200 MG/20 ML VIAL IV ONE (07:33)
[2020-03-17] MEDS ORDERED: WATER FOR IRRIG STERILE 2000 ML IR ONE (08:00)
[2020-03-17] MEDS ORDERED: IOHEXOL 300 MG/ML 50ML IV ONE (08:03)
[2020-03-17] MEDS ORDERED: SUCCINYLCHOLINE CHLORIDE 200 MG/10 ML INJ MDV ONE (08:11)
[2020-03-17] MEDS ORDERED: PHENYLEPHRINE/NS 1,000 MCG/10 ML SYRINGE (OR USE) IV ONE (08:11)
[2020-03-17] MEDS ORDERED: GLYCOPYRROLATE 0.4 MG/2 ML INJ ONE (08:11)
--- NOTE | 2020-03-17 08:16 | Short Stay Summary ---
Short Stay Documentation Date of service: 03/17/20 - Allergies and Medications Current Medications: Allergies codeine Allergy (Verified 06/30/16 13:11) Hives montelukast sodium [From Singulair] Allergy (Verified 06/30/16 13:11) Hives exenatide [From Byetta] Adverse Reaction (Intermediate, Verified 03/10/20 17:41) Hives metformin Adverse Reaction (Intermediate, Verified 03/10/20 17:41) Hives Home Medications Medication Instructions Recorded Confirmed Last Taken Type Budesoni/Formotero 160-4.5(Nf) 2 puff IH BID 06/30/16 03/11/20 03/17/20 04:00 History [Symbicort 160-4.5 (Nf)] Dulaglutide [Trulicity] 1.5 mg SQ QWEEK 06/30/16 03/17/20 03/13/20 History Albuterol Mdi (or & Nicu Only) 2 puff IH PRN PRN 03/10/20 03/17/20 7 Months Ago History [ProAir HFA Inhaler] ~08/16/19 NIFEdipine [Nifedipine ER] 30 mg PO DAILY 03/10/20 03/10/20 03/17/20 04:00 History Omeprazole 40 mg PO DAILY 03/10/20 03/10/20 03/17/20 04:00 History Tradjenta 5 mg PO DAILY 03/10/20 03/17/20 03/16/20 History glipiZIDE [Glucotrol] 10 mg PO BID 03/10/20 03/17/20 03/16/20 History labetaloL [Labetalol 200mg TAB] 200 mg PO TID 03/10/20 03/10/20 03/17/20 04:00 History Active Medications Cefazolin Sodium (Ancef/Sterile Water 2 Gm/20 Ml) 2 gm IV PREOP NR Stop: 03/17/20 23:59 Lactated Ringer's (Lactated Ringers) 1,000 mls @ 100 mls/hr IV DIRECT ISAIAS Last Admin: 03/17/20 07:15 Dose: 100 mls/hr Documented by: Midazolam HCl (Versed) 2 mg IV ONCE NR Stop: 03/17/20 20:00 Last Admin: 03/17/20 07:18 Dose: 2 mg Documented by: - Brief post op/procedure progress note Date of procedure: 03/17/20 Pre-op diagnosis: recurrent UTI Post-op diagnosis: same Procedure: cysto, rpg, uretrhal dilation, hydrodistention (500cc) Anesthesia: JULIOA Surgeon: MARYELLEN MORALES Estimated blood loss: none Pathology: none Condition: stable - Hospital course Hospital course: pyridium & ultram on chart - Disposition Condition at discharge: Stable Disposition: DC-01 TO HOME OR SELFCARE Short Stay Discharge Plan Follow up with: RICK SAMPSON [Other] - 7 Days
[2020-03-17 08:37] VITALS: BP 151/99
--- NOTE | 2020-03-17 08:44 | Post Anesthesia Evaluation ---
- Post Anesthesia Evaluation Patient Participated: Yes Airway Patent: Yes Stable Respiratory Function: Yes Nausea/Vomiting: No Temp > 96.8F: Yes Pain Manageable: Yes Adequeate Hydration: Yes Anesthesia Complications: No Block Receding Appropriately: Not Applicable Patient on Ventilator: No
[2020-03-17] MEDS ORDERED: PHENAZOPYRIDINE 200 MG TAB PO ONE (08:53)
--- NOTE | 2020-03-17 08:56 | Operative Report ---
PREOPERATIVE DIAGNOSIS: Recurrent urinary tract infection. POSTOPERATIVE DIAGNOSES: Recurrent urinary tract infection. PROCEDURE: Cystoscopy, bilateral retrograde pyelograms, hydrodistention, urethral dilatation to 30-Belizean. SURGEON: Syed Tafoya M.D. ANESTHESIA: General. ESTIMATED BLOOD LOSS: Minimal. FLUIDS: Crystalloid. COMPLICATIONS: No complications. INDICATIONS: This patient is a 39-year-old female with history of recurrent urinary tract infections and kidney stones, presents for evaluation. She had been seen by another urologist in the past, has some vague abdominal and pelvic pain at this time. CT of abdomen and pelvis unremarkable. She presents now for endoscopic evaluation. She also gives a history of urethral dilatation, which had helped her symptoms in the past. DESCRIPTION OF PROCEDURE: The patient was taken to the operative suite, placed in a supine position. After adequate general anesthesia, placed in a dorsal lithotomy position, prepped and draped in a sterile fashion. Pancystourethroscopy was performed with a 22-Belizean Storz cystoscope. The patient was noted to have some urethral stenosis. Urethral dilatation to 30-Belizean was performed without difficulty. Her bladder, no tumors or stones were noted. Both ureteral orifices in normal position. Bilateral retrograde pyelograms were obtained with an 8-Belizean Clarendon catheter, 8 mL of contrast. No filling defects or obstruction. Hydrodistention was performed. Bladder capacity of 500 mL. Reevaluation no signs of petechiae or hemorrhage. Bladder was drained. She was extubated and taken to recovery room. She will go home on Pyridium and Ultram and follow up in the office. [facility]# [id number] [facility]
[2020-03-17] MEDS ORDERED: traMADol 50 MG TAB PO PRN (09:00)
--- NOTE | 2020-03-17 10:09 | Fluoroscopy Report ---
INTRAOPERATIVE FLUOROSCOPY INDICATION / CLINICAL INFORMATION: RECURRENT UTI. TECHNIQUE: Intraoperative spot images were obtained during the procedure. FINDINGS: Intraoperative fluoroscopy images for retrograde urography. See operative/procedure note by performing physician for full details. Fluoroscopy Time: 10 seconds. Fluoroscopy Images: 9. Signer Name: Daryl Araiza MD Signed: 03/17/2020 10:04 AM Workstation Name: [id number]
[2020-03-17] MEDS ORDERED: PHENAZOPYRIDINE 200 MG TAB PO SCH (14:00)
== END 2020-03-17 06:14 | disposition home or self-care (01) ==
LOC: OR 06:13
PROVIDERS: ATTEND Urology
DX: N39.0 Urinary tract infection, site not specified (principal); N35.82 Other urethral stricture, female; Z20.828 Contact with and (suspected) exposure to other viral communicable diseases; I10 Essential (primary) hypertension; E66.01 Morbid (severe) obesity due to excess calories; K21.9 Gastro-esophageal reflux disease without esophagitis; M06.9 Rheumatoid arthritis, unspecified; E11.9 Type 2 diabetes mellitus without complications; Z88.5 Allergy status to narcotic agent; Z88.8 Allergy status to other drugs, medicaments and biological substances; Z79.899 Other long term (current) drug therapy; Z87.01 Personal history of pneumonia (recurrent); Z68.42 Body mass index [BMI] 45.0-49.9, adult; G43.909 Migraine, unspecified, not intractable, without status migrainosus; Z98.891 History of uterine scar from previous surgery; Z98.890 Other specified postprocedural states
CPT/HCPCS: 36415; 52281; 74420; 80053; 82962; 84703; 85027; A4217; C1758; J0330; J0690; J1100; J2250; J2370; J2405; J2704; J3010; J7120; Q9967; U0003

== ENCOUNTER 2020-10-28 07:22 | Outpatient (CLI) | payer BC ==
[2020-10-28 07:57] LABS: Blood Urea Nitrogen 8 mg/dL (7-17)
--- NOTE | 2020-10-28 08:42 | Cat Scan Report ---
CT NECK WITH CONTRAST HISTORY: Neck mass COMPARISON: None. TECHNIQUE: Routine CT of the neck is performed following intravenous contrast. Sagittal and coronal r eformatted images. All CT scans at this location are performed using CT dose reduction for JESSICA metz of automated exposure control. CONTRAST: 100 ml of Omnipaque 300 FINDINGS: Skull Base: No significant abnormality. Parotid, Carotid, Retropharyngeal, Prevertebral, Pharyngeal Mucosal, and [employer]er Spaces: No abnorm al mass, enhancing lesion or other significant abnormality. Airway: Patent and without significant abnormality. Lymphatics: No lymphadenopathy. Vasculature: No significant abnormality. Osseous Structures: No significant abnormality Additional findings: Normal thyroid gland. IMPRESSION: Unremarkable exam. No suspicious mass or adenopathy is detected. Signer Name: Artis Bedoya Jr, MD Signed: 10/28/2020 8:37 AM Workstation Name: [id number]
== END 2020-10-28 07:23 | disposition home or self-care (01) ==
LOC: CT 07:22
DX: R22.1 Localized swelling, mass and lump, neck (principal)
CPT/HCPCS: 36415; 70491; 82565; 84520; Q9967

== ENCOUNTER 2021-07-21 08:53 | Outpatient (CLI) | payer BC ==
--- NOTE | 2021-08-19 12:41 | Ultrasound Report ---
BILATERAL DIGITAL DIAGNOSTIC MAMMOGRAM WITH CAD 07/21/2021 RIGHT LIMITED BREAST ULTRASOUND INDICATION: The patient reports a palpable lump in the right breast for 5 years. TECHNIQUE: Digital bilateral mammographic imaging was performed. Spot compression views were obtaine d. Limited ultrasound was performed. This examination was interpreted with the benefit of Computer- ded Detection (CAD) analysis. COMPARISON: Bilateral mammogram, 11/30/2015 from [facility]. Interpretation of this study was held until the patient's prior mammograms could be obtained for comparison. FINDINGS: Breast Density: There are scattered areas of fibroglandular density. MAMMOGRAPHIC FINDINGS: There is no evidence of dominant mass, suspicious calcifications or architectu ral distortion in either breast. Spot compression views of the patient's area of palpable concern in the right breast at the 12:00 position demonstrate no focal abnormality to account for the patient's area of clinical concern as marked with skin BB. ULTRASOUND FINDINGS: Targeted ultrasound evaluation was performed of the area of interest. Sonograp hic evaluation of the right breast at the 12:00 position 9 cm from the nipple demonstrates no suspici ous solid mass or shadowing. There is a 3 mm cyst in the general area which appears to represent an i ncidental finding. IMPRESSION: 1. No mammographic or sonographic abnormality to account for the patient's area of palpable concern in the right breast. Therefore, clinical correlation is recommended. Follow up recommendation: Clinical exam BI-RADS Category 2: BENIGN. A "normal" or negative report should not discourage follow up or biopsy of a clinically significant f inding. A written summary of these findings will be mailed to the patient. The patient will be entered into a mammography reporting system which will generate a reminder letter for the patient's next appointmen t at the appropriate interval. According to the [employer], yearly mammograms are recommended starting at age 40 and continuing as long as a woman is in good health. Breast MRI is recommended for women with an tonya roximately 20-25% or greater lifetime risk of breast cancer, including women with a strong family his tory of breast or ovarian cancer and women who have been treated for Hodgkin's disease. Signer Name: Oriana De La Cruz MD Signed: 08/19/2021 12:36 PM Workstation Name: [email or web address]
== END 2021-07-21 08:54 | disposition home or self-care (01) ==
LOC: MAMMO 08:53
PROVIDERS: ATTEND Obstetrics & Gynecology
DX: N63.10 Unspecified lump in the right breast, unspecified quadrant (principal)
CPT/HCPCS: 77066